=== PATIENT | female | born 1960 | race Caucasian/White ===

== ENCOUNTER 2022-09-10 16:28 | Emergency (ER) | payer MEDICAID, OTHER ==
[~2022-09-10] VITALS: Ht 149.9 cm; Wt 61.0 kg
[2022-09-10 18:03] LABS: BASOPHILS % 0.9 % (0.0-2.0); EOSINOPHILS % 2.6 % (0.0-5.0); HEMOGLOBIN. 12.6 g/dL (12.0-16.0); LYMPHOCYTES % 28.6 % (20.0-50.0); MEAN CORPUSCULAR HEMOGLOBIN 32.8 pg (28.0-32.0); MEAN CORPUSCULAR VOLUME 98.6 fL (81.0-99.0); MEAN PLATELET VOLUME 8.9 fl (7.4-10.4); MONOCYTES % 5.9 % (2.0-8.0); PLATELET 307 x1000/uL (130-400); RED BLOOD CELL COUNT 3.86 mill/uL (4.2-5.4); RED CELL DISTRIBUTION WIDTH 12.5 % (11.6-14.6)
[2022-09-10 18:10] LABS: CHLORIDE 102 mEq/L (98-107)
[2022-09-10 18:19] LABS: INR 0.9; PROTHROMBIN TIME 9.4 sec (9.6-11.0)
[2022-09-10] MEDS ORDERED: KETOROLAC 30MG/ML VIAL IV ONE (20:45)
[2022-09-10] MEDS ORDERED: ACETAMINOPHEN 325MG TABLET PO ONE (20:45)
[2022-09-10] MEDS ORDERED: METH-653 MT ×3 (21:54→21:55)
[2022-09-10] MEDS ORDERED: IBUP-2028 MT ×3 (21:54→21:55)
[2022-09-10] MEDS ORDERED: TOPUD PO ×3 (21:54→21:55)
[2022-09-10 22:00] VITALS: BP 103/58
== END 2022-09-10 22:51 | disposition home or self-care (01) ==
LOC: ER 16:28 → CANBEDREQ 09-11 16:10
DX: S29.011A Strain of muscle and tendon of front wall of thorax, initial encounter (principal); R07.89 Other chest pain; E11.9 Type 2 diabetes mellitus without complications; I10 Essential (primary) hypertension; X58.XXXA Exposure to other specified factors, initial encounter; Y93.89 Activity, other specified; Y92.89 Other specified places as the place of occurrence of the external cause; Y99.8 Other external cause status
CPT/HCPCS: 36415; 71045; 80053; 83690; 83880; 84484; 85025; 85379; 85610; 93005; 96374; 99285; J1885; Z7610